=== PATIENT | male | born 1980 | race Caucasian/White ===

== ENCOUNTER 2022-09-15 08:38 | Outpatient (CLI) | payer OTHER | END 2022-09-15 10:57 | disposition home or self-care (01) | LOC: SONOGRAMA 08:38 | PROVIDERS: ATTEND Orthopaedic Surgery | DX: M70.21 Olecranon bursitis, right elbow (principal); Z76.89 Persons encountering health services in other specified circumstances ==

== ENCOUNTER → 2022-09-15 11:06 | Outpatient (CLI) | payer OTHER | END | disposition home or self-care (01) | LOC: LAB 11:06 | PROVIDERS: ATTEND Orthopaedic Surgery | DX: E88.9 Metabolic disorder, unspecified (principal); D64.9 Anemia, unspecified; D68.8 Other specified coagulation defects; N39.0 Urinary tract infection, site not specified; I10 Essential (primary) hypertension ==

== ENCOUNTER 2024-11-17 17:00 | Emergency (ER) | payer OTHER ==
[~2024-11-17] VITALS: Ht 182.9 cm; Wt 72.6 kg
[2024-11-17] MEDS ORDERED: DESCOVY 200-251 EACH (17:20)
[2024-11-17] MEDS ORDERED: CEFTRIAXONE SODIUM 1,000 MG VIAL IM ONE (18:30)
[2024-11-17] MEDS ORDERED: DIPHTH,PERTUSS(ACELL),TET VAC 0.5 ML VIAL IM ONE (18:30)
[2024-11-17] MEDS ORDERED: CEFTRIAXONE SODIUM 1,000 MG VIAL ONE (18:31)
[2024-11-17] MEDS ORDERED: DIPHTH,PERTUSS(ACELL),TET VAC 0.5 ML SYRINGE IM ONE (18:31)
[2024-11-17] MEDS ORDERED: LIDOCAINE HCL 1% 10ML VIAL ONE (18:32)
[2024-11-17] MEDS ORDERED: HYDROGEN PEROXIDE 473 ML BOTTLE TOP ONE (18:42)
[2024-11-17] MEDS ORDERED: POVIDONE-IODINE 118 ML BOTT TOP ONE (18:42)
[2024-11-17] MEDS ORDERED: BACITRACIN-NEOMYCIN-POLYMYXIN 0.9 GM PACKET TOP ONE (18:42)
[2024-11-17] MEDS ORDERED: [UNRECOGNIZED DRUG - OTHER] PO (19:42)
== END 2024-11-17 20:09 | disposition home or self-care (01) ==
LOC: ER 17:00
DX: S62.101A Fracture of unspecified carpal bone, right wrist, initial encounter for closed fracture (principal); S80.211A Abrasion, right knee, initial encounter; S50.311A Abrasion of right elbow, initial encounter; V00.131A Fall from skateboard, initial encounter; Y93.89 Activity, other specified; Y92.89 Other specified places as the place of occurrence of the external cause; Y99.9 Unspecified external cause status